=== PATIENT | female | born 1975 | race Hispanic/Latino ===

== ENCOUNTER 2019-08-10 22:32 | Emergency (ER) | payer SELFPAY ==
[2019-08-10] MEDS ORDERED: Metoclopramide HCl 10 MG/2 ML VIAL ONE (23:11)
[2019-08-10] MEDS ORDERED: diphenhydrAMINE 50 MG/ML VIAL ONE (23:11)
--- NOTE | 2019-08-13 12:23 | EKG ---
Test Reason : Blood Pressure : / mmHG Vent. Rate : 078 BPM Atrial Rate : 078 BPM P-R Int : 142 ms QRS Dur : 082 ms QT Int : 368 ms P-R-T Axes : 021 022 018 degrees QTc Int : 419 ms Normal sinus rhythm Normal ECG Confirmed by LETITIA BARRETT ([id number]), map editor CAMILLE TANNER ([id number]) on 08/13/2019 12:22:52 PM Referred By: Confirmed By:LETITIA BARRETT
== END 2019-08-11 00:14 | disposition home or self-care (01) ==
LOC: ERS 22:32
DX: R51 Headache (principal); E11.9 Type 2 diabetes mellitus without complications
CPT/HCPCS: 36416; 93005; 96361; 96374; 96375; J1200; J2765